=== PATIENT | female | born 1950 | race Caucasian/White ===

== ENCOUNTER 2020-10-23 08:59 | Day surgery (SDC) | payer MEDICARE, BC ==
[2020-10-15 15:06] LABS: BASOPHILS # (AUTO) 0.1 X10'3 (0-0.2); BASOPHILS % (AUTO) 1.1 % (0-1); EOSINOPHILS # (AUTO) 0.1 X10'3 (0-0.9); EOSINOPHILS % (AUTO) 2.4 % (0-6); LYMPHOCYTES # (AUTO) 1.8 X10'3 (1.1-4.8); LYMPHOCYTES % (AUTO) 29.4 % (21-51); MEAN CORPUSCULAR HEMOGLOBIN 30.9 PG (27.0-31.0); MEAN CORPUSCULAR HGB CONC 33.8 g/dL (33.0-36.5); MEAN CORPUSCULAR VOLUME 91.4 FL (78-98); MEAN PLATELET VOLUME 8.7 FL (7.4-10.4); MONOCYTES # (AUTO) 0.6 X10'3 (0-0.9); MONOCYTES % (AUTO) 10.7 % (2-12); NEUTROPHILS # (AUTO) 3.4 X10'3 (1.8-7.7); NEUTROPHILS % (AUTO) 56.4 % (42-75); PRE OP HEMOGLOBIN 14.2 g/dL (12.0-16.0); PRE OP PLATELET COUNT 253 X10'3 (140-440); RED CELL DISTRIBUTION WIDTH 13.4 % (11.5-14.5)
[2020-10-15 15:18] LABS: ALBUMIN 3.8 G/DL (3.4-5.0); ALBUMIN/GLOBULIN RATIO 1.1 (1.1-1.5); ALKALINE PHOSPHATASE 85 IU/L (46-116); BLOOD UREA NITROGEN 18 MG/DL (7-18); BUN/CREATININE RATIO 21.7 (6.6-38.0); CALCIUM 9.2 MG/DL (8.5-10.1); CHLORIDE 106 MMOL/L (99-107); CREATININE 0.83 MG/DL (0.40-0.90); PRE OP ALT 24 U/L (30-65); PRE OP ANION GAP 7 (8-16); PRE OP AST 14 U/L (10-37); PRE OP BILIRUB, TOTAL 0.6 MG/DL (0.0-1.0); PRE OP GLUCOSE 91 MG/DL (70-104); PRE OP POTASSIUM 4.1 MMOL/L (3.4-5.1); PRE OP SODIUM 145 MMOL/L (135-145); TOTAL CARBON DIOXIDE 31.6 MMOL/L (24-32); TOTAL PROTEIN 7.3 G/DL (6.4-8.2); eGFR 68 ML/MIN
[~2020-10-23] VITALS: Ht 165.1 cm; Wt 101.6 kg
[~2020-10-23 08:59] MED LIST: AMIT75TA7 PO; AMLO5TAB16 PO; ATOR10TA70 PO; BUPIVAcaine/PF 2.5mg/ml (0.25%) 10ml vial ONE; CELE-85 PO; DOCUMENT DATE & TIME OF BETA-BLOCKER PO ONE; ESCI20TA39 PO; LIDOcaine 0.5% (5mg/ml) 50ml vial ONE; LOSA50TA64 PO; NORE-111 PO; PROP20TA6 PO; ceFAZolin 2gm in dextrose, iso 50 ML IV ONE; famotidine 20mg tablet PO ONE; ringers solution, lacted 1,000 ML IV SCH
[2020-10-23 09:30] VITALS: BP 134/78
[2020-10-23] MEDS ORDERED: HYDROmorphone/PF 0.2 MG/ML SYRINGE IV PRN ×2 (10:35)
[2020-10-23] MEDS ORDERED: morphine 2 MG/ML inj. syringe IV PRN (10:35)
[2020-10-23] MEDS ORDERED: meperidine/PF 25mg/ml syringe IV PRN (10:35)
[2020-10-23] MEDS ORDERED: labetalol 20mg/4ml (5mg/ml) syringe IV PRN (10:35)
[2020-10-23] MEDS ORDERED: ondansetron/PF 4mg/2ml inj IV PRN (10:35)
[2020-10-23] MEDS ORDERED: morphine 4 MG/ML inj SYRINge IV PRN (10:35)
[2020-10-23] MEDS ORDERED: hydrALAZINE 20mg/ml inj. IV PRN (10:35)
[2020-10-23] MEDS ORDERED: acetaminophen 1,000mg/100ml IV 100 ML IV PRN (10:35)
[2020-10-23] MEDS ORDERED: ringers solution, lacted 1,000 ML IV SCH (10:35)
[2020-10-23] MEDS ORDERED: proCHLORperazine 10 MG/2 ml inj IV PRN (10:35)
[2020-10-23] MEDS ORDERED: fentaNYL/PF 50MCG/1 ML 2ML syringe ONE (11:09)
[2020-10-23] MEDS ORDERED: propofol inj 20 ML IV ONE ×3 (11:15→12:08)
[2020-10-23] MEDS ORDERED: midazolam 1 mg/ML 2ml injection ONE (11:15)
[2020-10-23 12:15] VITALS: BP 129/99
--- NOTE | 2020-10-23 12:15 | NUR ---
Received from OR via [facility] , accompanied by Anesthesiologist AMBER and report given by Anesthesiolgist. PATIENT WITH 20G PIV IN RIGHT UE RUNNING LR AT 100. DENIES PAIN AT THTIS TIME. LEFT UE IN SPLINT THAT IS CDI. D Addendum: 10/23/20 at 1228 by Edwin Vasquez RN, RN Amended: Links added.
[2020-10-23 12:25] VITALS: BP 129/94
[2020-10-23 12:35] VITALS: BP 124/81
[2020-10-23 12:45] VITALS: BP 124/88
--- NOTE | 2020-10-23 12:55 | NUR ---
I HAVE REVIEWED D/C INSTRUCTIONS WITH PATIENT AND FAMILY AND THEY HAVE VERBALIZED UNDERSTANDING. PATIENT D/C HOME WITH ALL BELONGINGS AND FAMILY GAVE TRANSPORT HOME.DRESSING CDI. NO C.O. PAIN., AMBULATING AND VOIDED. SPOUSE DROVE PATIENT HOME. Addendum: 10/23/20 at 1256 by Edwin Vasquez RN, RN Amended: Links added.
== END 2020-10-23 12:55 | disposition home or self-care (01) ==
LOC: PAS 08:59
PROVIDERS: ATTEND Orthopaedic Surgery Hand Surgery
DX: M18.12 Unilateral primary osteoarthritis of first carpometacarpal joint, left hand (principal); I10 Essential (primary) hypertension; M17.12 Unilateral primary osteoarthritis, left knee; E66.9 Obesity, unspecified; Z68.38 Body mass index [BMI] 38.0-38.9, adult; Z79.899 Other long term (current) drug therapy; Z20.822 Contact with and (suspected) exposure to COVID-19; Z90.49 Acquired absence of other specified parts of digestive tract; Z98.890 Other specified postprocedural states; Z85.810 Personal history of malignant neoplasm of tongue; M79.642 Pain in left hand
CPT/HCPCS: 25445; 36415; 80053; 82948; 85025; 87635; 93005; C1762; J2001; J2250; J2704; J3010; J3490; J7120; A4215; A4618; A7000

== ENCOUNTER 2022-09-16 08:38 | Inpatient (IN) | payer MEDICARE, BC ==
[~2022-09-16] VITALS: Ht 162.6 cm; Wt 88.9 kg
[2022-09-16] VITALS (17 sets, daily range): BP systolic 105–157; BP diastolic 52–86
[~2022-09-16 08:38] MED LIST changes: -BUPIVAcaine/PF 2.5mg/ml (0.25%) 10ml vial ONE; +DESV50TA20 PO; +DICL75TA28 PO; -ESCI20TA39 PO; -LIDOcaine 0.5% (5mg/ml) 50ml vial ONE; +PHEN30CA21 PO; +acetaminophen 325mg tablet PO ONE; -ceFAZolin 2gm in dextrose, iso 50 ML IV ONE; +ceFAZolin inj. 2,000 MG in dextrose 5%-water 100 ML IV ONE; +celeCOXIB 100mg capsule PO ONE; +gabapentin 300mg capsule PO ONE; +metoclopramide 5 mg/ml inj IV ONE; +oxyCODONE SR 10mg (sust. release) tab -2 tabs (20mg) PO ONE; -ringers solution, lacted 1,000 ML IV SCH; +tranexamic acid inj. 1,000 MG in normal saline IV soln 100ML IV ONE; +vancomycin 1,500 MG in NS 300ml IV soln IV ONE
--- NOTE | 2022-09-16 09:00 | NUR ---
PT WAS ABLE TO TAKE SHOWERS, NO OINTMENT PER DR, EDUCATION FOR POST OP GIVEN, DISCUSSED ON-Q AND IS-ALL QUESTIONS ANSWERED, PT HAS +CSM AND +2PULSES TO BLE
[2022-09-16 10:00] LABS: BASOPHILS % (AUTO) 0.5 % (0-1); EOSINOPHILS # (AUTO) 0.1 X10'3 (0-0.9); LYMPHOCYTES # (AUTO) 1.3 X10'3 (1.1-4.8); LYMPHOCYTES % (AUTO) 22.3 % (21-51); MEAN CORPUSCULAR HEMOGLOBIN 30.8 PG (27.0-31.0); MEAN CORPUSCULAR HGB CONC 33.2 g/dL (33.0-36.5); MEAN CORPUSCULAR VOLUME 92.6 FL (78-98); MEAN PLATELET VOLUME 9.3 FL (7.4-10.4); MONOCYTES # (AUTO) 0.4 X10'3 (0-0.9); MONOCYTES % (AUTO) 6.4 % (2-12); NEUTROPHILS # (AUTO) 4.1 X10'3 (1.8-7.7); NEUTROPHILS % (AUTO) 68.8 % (42-75); PRE OP PLATELET COUNT 242 X10'3 (140-440); RED BLOOD COUNT 4.54 X10'6 (4.20-5.60); RED CELL DISTRIBUTION WIDTH 14.3 % (11.5-14.5)
[2022-09-16 10:15] LABS: ALANINE AMINOTRANSFERASE 27 U/L (12-78); ALBUMIN 3.7 G/DL (3.4-5.0); ALBUMIN/GLOBULIN RATIO 1.1 (1.1-1.5); ALKALINE PHOSPHATASE 65 IU/L (46-116); ANION GAP 6 (8-16); ASPARTATE AMINO TRANSFERASE 25 U/L (10-37); BILIRUBIN,TOTAL 0.6 MG/DL (0.1-1.0); BLOOD UREA NITROGEN 13 MG/DL (7-18); BUN/CREATININE RATIO 20.6 (6.6-38.0); CHLORIDE 107 MMOL/L (99-107); CREATININE 0.63 MG/DL (0.40-0.90); GLUCOSE 99 MG/DL (70-104); POTASSIUM 3.9 MMOL/L (3.5-5.1); SODIUM 138 MMOL/L (135-145); TOTAL CARBON DIOXIDE 25.2 MMOL/L (24-32); TOTAL PROTEIN 7.1 G/DL (6.4-8.2); eGFR > 90 ML/MIN
[2022-09-16] MEDS: ringers solution, lacted 1,000 ML IV SCH ×2 (10:32→15:12)
[2022-09-16] MEDS ORDERED: ketorolac trometh. 30mg/ml inj. ONE (11:09)
[2022-09-16] MEDS ORDERED: cloNIDine hcl/PF 100mcg/ml inj ONE (11:09)
[2022-09-16] MEDS ORDERED: epiNEPHrine 1 mg/ml inj ONE (11:09)
[2022-09-16] MEDS ORDERED: ROPIVAcaine 0.5% (5mg/ml) 30ml vial ONE (11:10)
[2022-09-16] MEDS ORDERED: vancomycin 1,000mg inj ONE (11:10)
[2022-09-16] MEDS ORDERED: MIDAZolam 1 MG/ML 5ML VIAL ONE (11:19)
[2022-09-16] MEDS ORDERED: FENTANYL CITRATE/PF 50 MCG/1 ML VIAL ONE (11:19)
[2022-09-16] MEDS ORDERED: acetaminophen 325mg tablet PO PRN (11:40)
[2022-09-16] MEDS ORDERED: HYDROmorphone inj. 0.5 MG/0.5 ML DISP.SYRIN IV PRN (11:40)
[2022-09-16] MEDS ORDERED: HYDROmorphone 1 mg/ml syringe IV PRN (11:40)
[2022-09-16] MEDS ORDERED: ondansetron/PF 4mg/2ml inj IV PRN ×2 (11:40→12:15)
[2022-09-16] MEDS ORDERED: diphenhydrAMINE 25mg capsule PO PRN ×2 (11:40)
[2022-09-16] MEDS ORDERED: naloxone 0.4 mg/ml inj IV PRN (11:40)
[2022-09-16] MEDS ORDERED: bisacodyl 10mg suppository rectal RC PRN (11:40)
[2022-09-16] MEDS ORDERED: magnesium hydroxide 30ml (MOM) UD suspension PO PRN (11:40)
[2022-09-16] MEDS ORDERED: propofol inj 20 ML IV ONE ×2 (11:46→12:41)
[2022-09-16] MEDS ORDERED: morphine 4 MG/ML inj SYRINge IV PRN (12:15)
[2022-09-16] MEDS ORDERED: proCHLORperazine 10 MG/2 ml inj IV PRN (12:15)
[2022-09-16] MEDS ORDERED: morphine 2 MG/ML inj. syringe IV PRN (12:15)
[2022-09-16] MEDS ORDERED: ringers solution, lacted 1,000 ML IV SCH (12:15)
[2022-09-16] MEDS ORDERED: meperidine/PF 25mg/ml syringe IV PRN ×3 (12:15)
[2022-09-16] MEDS ORDERED: ROPIVAcaine 0.2%/PF PUMP/bolus 545 ML ADDCANAL SCH (12:40)
[2022-09-16] MEDS ORDERED: ROPIVAcaine 0.2% (10 MG/5 ML) BOLUS INJECTION ADDCANAL PRN (12:40)
[2022-09-16] MEDS ORDERED: ePHEDrine 50MG/ML INJ. ONE (12:41)
--- NOTE | 2022-09-16 13:18 | NUR ---
Received from OR via , accompanied by Anesthesiologist AND OR NURSE and report given by Anesthesiolgist. PT IS A/O X4. DENIES PAIN OR DISCOMFORT. ON ROOM AIR. VSS. BALAT DRESSING IN PLACE. PWDR BEHZAD SLING AND ICE IN PLACE. 20G TO LEFT HAND, PACU LR INFUSING. VSS Addendum: 09/16/22 at 1419 by Jessi Jackman RN Amended: Links added.
--- NOTE | 2022-09-16 14:58 | NUR ---
Report called to receiving nurse. Transferred via BED WITH ONE BAG Belongings . Special Issues communicated to receiving nurse. PT HOPING TO D/C TODAY HOME WITH SPOUSE THEY LIVE 2 HOURS FROM FACILITY IN [facility]. PT UNABLE TO MEET THE CRITERIA FOR PT TO COME AND ASSESS FOR SAME DAY D/C. PT TRANSFERRED TO FLOOR DENYING PAIN OR DISCOMFORT. VSS. C/O OF NAUSEA; ZOFRAN GIVEN WITH SOME RELIEF PRIOR TO DISCHARGE FROM UNIT. Addendum: 09/16/22 at 1539 by Jessi Jackman RN Amended: Links added.
--- NOTE | 2022-09-16 15:00 | NUR ---
Patient arrived to the floor. No complaints of pain. Vital signs stable.
[2022-09-16] MEDS: potassium cl 20mEq in 1/2 NS 1,000 ML IV SCH ×2 (15:12→16:49)
[2022-09-16] MEDS: gabapentin 300mg capsule PO SCH ×2 (15:13→20:03)
[2022-09-16] MEDS ORDERED: tranexamic acid inj. 890 MG in normal saline 100ml IV soln 91.1 ML IV ONE (16:10)
--- NOTE | 2022-09-16 18:25 | NUR ---
Problems reprioritized. Patient report given, questions answered & plan of care reviewed with ALLEN MILLER. Addendum: 09/16/22 at 1825 by Sarah Mtz RN correctionallen ramirez
--- NOTE | 2022-09-16 18:38 | NUR ---
Patient in room [facility]. I have received report from SONY VILLA and had the opportunity to ask questions and assume patient care.
[2022-09-16] MEDS ORDERED: propranolol 40mg tablet PO SCH (20:00)
[2022-09-16] MEDS ORDERED: VANCOMYCIN 1,500MG inj. 1,500 MG in normal saline 500ml IV soln 300 ML IV ONE (20:00)
[2022-09-16] MEDS: ascorbic acid 500mg tablet PO SCH (20:02)
[2022-09-16] MEDS: HYDROcodone/acetaminophen 10/325mg tab PO PRN (20:02)
[2022-09-16] MEDS: venlafaxine 25mg tablet PO SCH (20:59)
[2022-09-16] MEDS ORDERED: sennosides 8.6mg tablet PO SCH (21:00)
[2022-09-16] MEDS ORDERED: atorvastatin 10mg tablet PO SCH (21:00)
[2022-09-16] MEDS: propranolol 10mg tablet PO SCH (21:06)
[2022-09-17 02:00] VITALS: BP 117/65
--- NOTE | 2022-09-17 03:02 | NUR ---
VITAL MACHINE MALFUNCTIONED AND RECORDED ONLY THE HOURS INDICATED BY THE MACHINE. Addendum: 09/17/22 at 0303 by Lizette Villafana RN Amended: Links added.
[2022-09-17] MEDS: potassium cl 20mEq in 1/2 NS 1,000 ML IV SCH (03:33)
[2022-09-17] MEDS: HYDROcodone/acetaminophen 10/325mg tab PO PRN ×3 (03:33→12:51)
--- NOTE | 2022-09-17 06:20 | NUR ---
Problems reprioritized. Patient report given, questions answered & plan of care reviewed with ELISEO VILLA.
--- NOTE | 2022-09-17 06:26 | NUR ---
Patient in room [facility]. I have received report from Lizette VILLA and had the opportunity to ask questions and assume patient care.
[2022-09-17 06:32] LABS: BASOPHILS % (AUTO) 0.4 % (0-1); EOSINOPHILS # (AUTO) 0.1 X10'3 (0-0.9); EOSINOPHILS % (AUTO) 1.3 % (0-6); HEMATOCRIT 37.1 % (35.0-45.0); HEMOGLOBIN 12.3 g/dl (12.0-16.0); LYMPHOCYTES # (AUTO) 1.1 X10'3 (1.1-4.8); MEAN CORPUSCULAR HGB CONC 33.2 g/dL (33.0-36.5); MEAN CORPUSCULAR VOLUME 93.3 FL (78-98); MEAN PLATELET VOLUME 9.3 FL (7.4-10.4); MONOCYTES # (AUTO) 0.6 X10'3 (0-0.9); MONOCYTES % (AUTO) 8.7 % (2-12); NEUTROPHILS # (AUTO) 5.1 X10'3 (1.8-7.7); NEUTROPHILS % (AUTO) 73.6 % (42-75); PLATELET COUNT 202 X10'3 (140-440); RED BLOOD COUNT 3.97 X10'6 (4.20-5.60); RED CELL DISTRIBUTION WIDTH 14.1 % (11.5-14.5); WHITE BLOOD COUNT 6.9 X10'3 (4.5-11.0)
[2022-09-17 06:46] LABS: ANION GAP 8 (8-16); CHLORIDE 106 MMOL/L (99-107); SODIUM 139 MMOL/L (135-145); TOTAL CARBON DIOXIDE 25.4 MMOL/L (24-32)
[2022-09-17 07:00] VITALS: BP 110/67
[2022-09-17 07:48] VITALS: BP_SYST 115
[2022-09-17] MEDS: ascorbic acid 500mg tablet PO SCH (07:49)
[2022-09-17] MEDS: gabapentin 300mg capsule PO SCH ×2 (07:49→12:51)
[2022-09-17] MEDS: propranolol 10mg tablet PO SCH (07:49)
[2022-09-17] MEDS ORDERED: multivitamins, therapeutics tablet PO SCH (08:00)
[2022-09-17] MEDS ORDERED: NORETHINDRONE AC ETH ESTRADIOL PO SCH (08:00)
[2022-09-17] MEDS ORDERED: amLODIPine 5mg tablet PO SCH (08:00)
[2022-09-17] MEDS ORDERED: losartan 50mg tablet PO SCH (08:00)
[2022-09-17] MEDS: venlafaxine 25mg tablet PO SCH (08:00)
[2022-09-17] MEDS ORDERED: amitriptyline 50mg tablet PO SCH (08:00)
[2022-09-17] MEDS ORDERED: aspirin 325mg tablet PO SCH (08:30)
--- NOTE | 2022-09-17 13:20 | NUR ---
patient seen by DR Tyesha oconnor, walked with PT cleared for DC. All Dc instructions given to patient. patient DC home with via private car in stable condition.
[2022-09-17] MEDS ORDERED: celeCOXIB 100mg capsule PO SCH (20:00)
== END 2022-09-17 13:20 | disposition home or self-care (01) | DRG 470 ==
LOC: PAS 08:38 → PAS IN 11:41 → SUR 3N 15:20
PROVIDERS: ADMIT Orthopaedic Surgery; ATTEND Orthopaedic Surgery
PROC: 0SRC069 Replacement of Right Knee Joint with Oxidized Zirconium on Polyethylene Synthetic Substitute, Cemented, Open Approach (ICD-10-PCS; principal; 2022-09-16 11:22)
DX: M17.11 Unilateral primary osteoarthritis, right knee (principal)
CPT/HCPCS: 36415; 73560; 80051; 80053; 82948; 85025; 86885; 86900; 86901; 97116; 97161; 97530; A4215; A6449; A7000; C1713; C1776; G0378; J0171; J0690; J0735; J1885; J2250; J2405; J2704; J2765; J2795; J3010; J3370; J3480; J3490; J7040; J7060; J7120

== ENCOUNTER → 2024-02-01 | Outpatient (CLI) | payer MEDICARE, BC ==
[~2024-02-01] MED LIST changes: +CELE-127 PO; -CELE-85 PO; -DOCUMENT DATE & TIME OF BETA-BLOCKER PO ONE; -acetaminophen 325mg tablet PO ONE; -ceFAZolin inj. 2,000 MG in dextrose 5%-water 100 ML IV ONE; -celeCOXIB 100mg capsule PO ONE; -famotidine 20mg tablet PO ONE; -gabapentin 300mg capsule PO ONE; -metoclopramide 5 mg/ml inj IV ONE; -oxyCODONE SR 10mg (sust. release) tab -2 tabs (20mg) PO ONE; -tranexamic acid inj. 1,000 MG in normal saline IV soln 100ML IV ONE; -vancomycin 1,500 MG in NS 300ml IV soln IV ONE
== END | disposition home or self-care (01) ==
LOC: MRI 10:35
PROVIDERS: ATTEND Pediatrics Sports Medicine
DX: M51.27 Other intervertebral disc displacement, lumbosacral region (principal); M47.817 Spondylosis without myelopathy or radiculopathy, lumbosacral region; M48.07 Spinal stenosis, lumbosacral region; M25.552 Pain in left hip; M53.3 Sacrococcygeal disorders, not elsewhere classified; M46.1 Sacroiliitis, not elsewhere classified; M51.37 Other intervertebral disc degeneration, lumbosacral region; M47.816 Spondylosis without myelopathy or radiculopathy, lumbar region; M54.32 Sciatica, left side
CPT/HCPCS: 72148

== ENCOUNTER 2024-09-04 08:18 | Inpatient (IN) | payer MEDICARE, OTHER ==
[~2024-09-04] VITALS: Ht 162.6 cm; Wt 90.6 kg
[2024-09-04] MEDS: normal saline 1000ml 1,000 ML IV ONE (09:50)
[2024-09-04] MEDS: tamsulosin 0.4mg capsule PO ONE (09:51)
[2024-09-04] MEDS: ketorolac trometh 15mg/ml vial 15 MG/ML ML IV ONE (09:51)
[2024-09-04 09:53] LABS: BASOPHILS % (AUTO) 0.4 % (0-1); EOSINOPHILS % (AUTO) 0.4 % (0-6); HEMOGLOBIN 15.2 g/dl (12.0-16.0); LYMPHOCYTES # (AUTO) 0.9 X10'3 (1.1-4.8); LYMPHOCYTES % (AUTO) 10.4 % (21-51); MEAN CORPUSCULAR HEMOGLOBIN 31.5 PG (27.0-31.0); MEAN CORPUSCULAR HGB CONC 33.8 g/dL (33.0-36.5); MEAN CORPUSCULAR VOLUME 93.2 FL (78-98); MEAN PLATELET VOLUME 8.8 FL (7.4-10.4); MONOCYTES # (AUTO) 0.6 X10'3 (0-0.9); MONOCYTES % (AUTO) 6.4 % (2-12); NEUTROPHILS # (AUTO) 7.3 X10'3 (1.8-7.7); NEUTROPHILS % (AUTO) 82.4 % (42-75); PLATELET COUNT 324 X10'3 (140-440); RED BLOOD COUNT 4.82 X10'6 (4.20-5.60); RED CELL DISTRIBUTION WIDTH 13.4 % (11.5-14.5); WHITE BLOOD COUNT 8.9 X10'3 (4.5-11.0)
[2024-09-04 10:08] LABS: ALANINE AMINOTRANSFERASE 32 U/L (12-78); ALBUMIN 3.9 G/DL (3.4-5.0); ALKALINE PHOSPHATASE 80 IU/L (46-116); ANION GAP 13 (8-16); ASPARTATE AMINO TRANSFERASE 21 U/L (10-37); BILIRUBIN,TOTAL 0.8 MG/DL (0.1-1.0); BLOOD UREA NITROGEN 16 MG/DL (7-18); BUN/CREATININE RATIO 19.5 (10.0-20.0); CALCIUM 9.2 MG/DL (8.5-10.1); CHLORIDE 103 MMOL/L (99-107); CREATININE 0.82 MG/DL (0.40-0.90); GLUCOSE 111 MG/DL (70-104); POTASSIUM 3.9 MMOL/L (3.5-5.1); SODIUM 141 MMOL/L (135-145); TOTAL CARBON DIOXIDE 25.5 MMOL/L (24-32); TOTAL PROTEIN 7.9 G/DL (6.4-8.2); eCRCL 54 ML/MIN; eGFR 69 ML/MIN
[2024-09-04 10:09] LABS: BILIRUBIN,URINE NEGATIVE (Neg); CLARITY,URINE SLIGHTLY CLOUDY (Clear); COLOR,URINE YELLOW (Yellow); GLUCOSE, URINE NEGATIVE (Neg); KETONES,URINE NEGATIVE (Neg); LEUKOCYTE ESTERASE ,URINE NEGATIVE (Neg); NITRITES, URINE NEGATIVE (Neg); OCCULT BLOOD,URINE LARGE (Neg); PH,URINE 5.5 (4.8-8.0); PROTEIN,URINE TRACE mg/dl (Neg); UROBILINOGEN,URINE 0.2 E.U/dL (0.2-1.0)
[2024-09-04 10:13] LABS: UA COLLECTION TYPE CLN CATCH MIDSTREAM
[2024-09-04 10:15] LABS: RBC,URINE TNTC /HPF (0-2)
[2024-09-04 10:16] LABS: PRO BRAIN NATRIURETIC PEPTIDE 383 PG/ML (0-125)
[2024-09-04 10:16] LABS: BACTERIA,URINE FEW /HPF (Neg); MUCUS STRANDS FEW /LPF (Neg); SQUAMOUS EPITHELIAL CELL,UR FEW /LPF (FEW); TRANSITIONAL EPI CELLS,URINE FEW /HPF
[2024-09-04] MEDS ORDERED: AMIT75TA PO (10:17)
[2024-09-04] MEDS ORDERED: METF-1203 PO (10:17)
[2024-09-04] MEDS ORDERED: ATOR40TA72 PO (10:17)
[2024-09-04] MEDS ORDERED: CYCL-920 PO (10:17)
[2024-09-04] MEDS ORDERED: HYDR-3964 PO (10:17)
[2024-09-04] MEDS ORDERED: magnesium sulf-water 4G/100mL 100 ML IV PRN (12:30)
[2024-09-04] MEDS ORDERED: acetaminophen 325mg tablet PO PRN (12:30)
[2024-09-04] MEDS ORDERED: simethicone 80mg chew tab PO PRN (12:30)
[2024-09-04] MEDS ORDERED: potassium Cl 40MEQ/1/2NS 520ml 520 ML IV PRN (12:30)
[2024-09-04] MEDS ORDERED: ondansetron/PF 4mg/2ml inj IV PRN (12:30)
[2024-09-04] MEDS ORDERED: magnesium Cl slow-release 64mg tablet PO PRN (12:30)
[2024-09-04] MEDS ORDERED: ketorolac trometh 15mg/ml vial 15 MG/ML ML IV PRN (12:30)
[2024-09-04] MEDS ORDERED: magnesium hydroxide 30ml (MOM) UD suspension PO PRN (12:30)
[2024-09-04] MEDS ORDERED: mag hydrox/Alum hydrox/simeth 30ml oral suspension PO PRN (12:30)
[2024-09-04] MEDS ORDERED: magnesium sulf-water 2g/50mL 50 ML IV PRN (12:30)
[2024-09-04] MEDS ORDERED: docusate sod 100mg capsule PO PRN (12:30)
[2024-09-04] MEDS ORDERED: potassium Cl 20 mEq SR tablet PO PRN ×2 (12:30)
[2024-09-04] MEDS: normal saline 1000ml 1,000 ML IV SCH (13:12)
[2024-09-04 13:20] LABS: HEMOGLOBIN A1C 5.3 % (4.5-6.2)
[2024-09-04] MEDS ORDERED: cyclobenzaprine 10mg tablet PO PRN (15:15)
[2024-09-04 19:20] VITALS: BP 127/66; PULSE 87; RESP 19; TEMP 97.7; O2SAT 94
[2024-09-04 20:00] VITALS: RESP 18; O2SAT 96
[2024-09-04 22:00] VITALS: BP 112/70; PULSE 99; RESP 16; TEMP 98; O2SAT 96
[2024-09-04] MEDS: propranolol 10mg tablet PO SCH (22:29)
[2024-09-04] MEDS: metFORMIN 500mg tablet PO SCH (22:32)
[2024-09-04] MEDS: heparin, porcine 5000 units/ml vial SQ SCH (22:33)
[2024-09-04] MEDS: K and/or MAG REPLACEMENT MC SCH (22:45)
[2024-09-05 04:34] LABS: BASOPHILS # (AUTO) 0.1 X10'3 (0-0.2); BASOPHILS % (AUTO) 0.9 % (0-1); EOSINOPHILS # (AUTO) 0.1 X10'3 (0-0.9); EOSINOPHILS % (AUTO) 2.4 % (0-6); HEMATOCRIT 34.9 % (35.0-45.0); HEMOGLOBIN 11.8 g/dl (12.0-16.0); LYMPHOCYTES # (AUTO) 1.6 X10'3 (1.1-4.8); LYMPHOCYTES % (AUTO) 25.8 % (21-51); MEAN CORPUSCULAR VOLUME 94.2 FL (78-98); MEAN PLATELET VOLUME 8.6 FL (7.4-10.4); MONOCYTES # (AUTO) 0.5 X10'3 (0-0.9); NEUTROPHILS # (AUTO) 3.7 X10'3 (1.8-7.7); NEUTROPHILS % (AUTO) 61.9 % (42-75); PLATELET COUNT 220 X10'3 (140-440); RED CELL DISTRIBUTION WIDTH 13.5 % (11.5-14.5)
[2024-09-05 04:53] LABS: ALANINE AMINOTRANSFERASE 21 U/L (12-78); ALBUMIN 2.8 G/DL (3.4-5.0); ALBUMIN/GLOBULIN RATIO 0.9 (1.1-1.5); ALKALINE PHOSPHATASE 55 IU/L (46-116); ANION GAP 9 (8-16); ASPARTATE AMINO TRANSFERASE 16 U/L (10-37); BILIRUBIN,TOTAL 0.5 MG/DL (0.1-1.0); BLOOD UREA NITROGEN 18 MG/DL (7-18); BUN/CREATININE RATIO 23.7 (10.0-20.0); CALCIUM 8.1 MG/DL (8.5-10.1); CHLORIDE 108 MMOL/L (99-107); CHOL/HDL RATIO 2.5 (0.00-4.99); CHOLESTEROL 124 MG/DL (0-200); CREATININE 0.76 MG/DL (0.40-0.90); GLUCOSE 98 MG/DL (70-104); HDL CHOLESTEROL 49 MG/DL (35-60); LDL CHOLESTEROL 63 MG/DL (50-100); MAGNESIUM 1.8 MG/DL (1.5-2.4); POTASSIUM 3.8 MMOL/L (3.5-5.1); SODIUM 143 MMOL/L (135-145); TOTAL CARBON DIOXIDE 26.2 MMOL/L (24-32); TOTAL PROTEIN 5.8 G/DL (6.4-8.2); TRIGLYCERIDES 115 MG/DL (20-135); eCRCL 58 ML/MIN; eGFR 75 ML/MIN
[2024-09-05 06:00] VITALS: BP 131/67; PULSE 84; RESP 17; TEMP 98.6; O2SAT 94
[2024-09-05 08:00] VITALS: RESP 18; O2SAT 97
[2024-09-05] MEDS ORDERED: NORETHINDRONE AC ETH ESTRADIOL PO SCH (08:00)
[2024-09-05] MEDS: amitriptyline 25mg tablet PO SCH (08:29)
[2024-09-05] MEDS: lactobacillus rhamnosus 10,000 MMU CELLS/CAPSULE PO SCH (08:29)
[2024-09-05] MEDS: atorvastatin 20mg tablet PO SCH (08:30)
[2024-09-05] MEDS: losartan 50mg tablet PO SCH (08:32)
[2024-09-05 11:00] VITALS: BP 168/82; PULSE 76; RESP 20; TEMP 97.5; O2SAT 97
[2024-09-05] MEDS ORDERED: SIME80TA73 PO (11:39)
[2024-09-05] MEDS ORDERED: tamsulosin 0.4mg capsule PO SCH (21:00)
== END 2024-09-05 13:18 | disposition home or self-care (01) | DRG 690 ==
LOC: ER 08:18 → ED HOLD 10:58 → SUR 3N 19:15
PROVIDERS: ADMIT Internal Medicine; ATTEND Internal Medicine
DX: N13.6 Pyonephrosis (principal); E78.00 Pure hypercholesterolemia, unspecified; G43.909 Migraine, unspecified, not intractable, without status migrainosus; Z66 Do not resuscitate; F10.90 Alcohol use, unspecified, uncomplicated; M54.50 Low back pain, unspecified; E11.9 Type 2 diabetes mellitus without complications; E66.811 Obesity, class 1; I10 Essential (primary) hypertension; Z79.899 Other long term (current) drug therapy; Z68.34 Body mass index [BMI] 34.0-34.9, adult; Z90.49 Acquired absence of other specified parts of digestive tract
CPT/HCPCS: 36415; 71045; 80053; 80061; 81001; 83036; 83605; 83735; 83880; 85025; 87040; 87081; 87088; 97161; 97530; 99285; G0378; J1644; J1885; J7030